=== PATIENT | male | born 1985 | race Caucasian/White ===

== ENCOUNTER 2016-09-15 18:55 | Emergency (ER) | payer BC ==
[2016-09-15 19:02] VITALS: RESP 18
--- NOTE | 2016-09-15 19:25 | XR ---
EXAMINATION TYPE: XR forearm RT DATE OF EXAM: 09/15/2016 7:22 PM CLINICAL HISTORY: pain TECHNIQUE: Frontal and lateral images of the right forearm are obtained. COMPARISON: None. FINDINGS: There is no acute fracture/dislocation evident. The joint spaces appear within normal limi ts. The overlying soft tissue appears unremarkable. IMPRESSION: There is no acute fracture or dislocation. ICD 10 NO FRACTURE, INITIAL EVALUATION
--- NOTE | 2016-09-15 19:32 | ED ---
Wound/Laceration HPI - General Chief Complaint: Wound/Laceration Stated Complaint: fall-arm laceration Time Seen by Provider: 09/15/16 19:04 Source: patient, RN notes reviewed, old records reviewed Mode of arrival: ambulatory Limitations: no limitations - History of Present Illness Initial Comments: Patient is a 31-year-old male with chief complaint of laceration over the right forearm. 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 Patient reports that his tetanus is up-to-date. He denies any foreign bodies within the forearm. He denies any pain with flexion and extension of the wrist or the elbow. He states that he does have some superficial numbness and tingling over the area. He denies any other injury related to the fall.Patient denies any recent fever, chills, shortness of breath, chest pain, back pain, abdominal pain , nausea vomiting, numbness or tingling, dysuria or hematuria, constipation or diarrhea, headaches or visual changes, or any other current symptoms - Related Data Previous Rx's Medication Instructions Recorded Cephalexin [Keflex] 500 mg PO Q8HR #21 cap 09/15/16 Allergies Allergy/AdvReac Type Severity Reaction Status Date / Time Penicillins Allergy Unknown Verified 09/15/16 19:27 Childhood Review of Systems ROS Statement: Those systems with pertinent positive or pertinent negative responses have been documented in the HPI. ROS Other: All systems not noted in ROS Statement are negative. Past Medical History Past Medical History: Asthma History of Any Multi-Drug Resistant Organisms: None Reported Past Surgical History: Orthopedic Surgery Additional Past Surgical History / Comment(s): right knee surgery Past Psychological History: No Psychological Hx Reported Smoking Status: Never smoker Past Alcohol Use History: Occasional Past Drug Use History: None Reported General Exam - General Exam Comments Initial Comments: Patient is a pleasant 31-year-old male. No acute distress. Limitations: no limitations General appearance: alert, in no apparent distress Head exam: Present: atraumatic, normocephalic, normal inspection Eye exam: Present: normal appearance, PERRL, EOMI. Absent: scleral icterus, conjunctival injection, periorbital swelling ENT exam: Present: normal exam, mucous membranes moist Neck exam: Present: normal inspection. Absent: tenderness, meningismus, lymphadenopathy Respiratory exam: Present: normal lung sounds bilaterally. Absent: respiratory distress, wheezes, rales, rhonchi, stridor Cardiovascular Exam: Present: regular rate, normal rhythm, normal heart sounds. Absent: systolic murmur, diastolic murmur, rubs, gallop, clicks GI/Abdominal exam: Present: soft, normal bowel sounds. Absent: distended, tenderness, guarding, rebound, rigid Extremities exam: Present: normal inspection, full ROM, normal capillary refill. Absent: tenderness, pedal edema, joint swelling, calf tenderness Right Elbow exam: Present: normal inspection, full ROM Forearm Wrist exam: Present: full ROM, laceration (5 cm laceration over the proximal anterior forearm. No evidence of tendon or muscle involvement. There does appear to be a superficial nerve that was lacerated.). Absent: normal inspection, tenderness, swelling, abrasion, ecchymosis Hand Wrist exam: Present: normal inspection, full ROM Neuro motor exam: Present: wrist extension intact, thumb opposition intact, thumb IP flexion intact, thumb adduction intact, fingers 2-5 abduction intact Neurosensory exam: Present: 2-point discrimination, radial nerve intact, ulnar nerve intact, median nerve intact Vascular: Present: normal capillary refill Back exam: Present: normal inspection Neurological exam: Present: alert, oriented X3, CN II-XII intact Psychiatric exam: Present: normal affect, normal mood Skin exam: Present: warm, dry, intact, normal color. Absent: rash Course Vital Signs 09/15/16 09/15/16 19:00 20:26 Temperature 97.2 F L 97.8 F Pulse Rate 84 74 Respiratory 18 18 Rate Blood Pressure 137/63 128/73 O2 Sat by Pulse 98 98 Oximetry Procedures - Laceration Laceration #1 Indication: laceration Site: upper extremity (Right forearm.) Size (cm): 5 Description: linear Depth: simple, single layer Anesthetic Used: benzocaine 0.25% Anesthesia Technique: local infiltration Amount (mls): 6 Pre-repair: wound explored, irrigated extensively Type of Sutures: nylon Size of Sutures: 5-0 Number of Sutures: 8 Technique: simple, interrupted Patient Tolerated Procedure: well, no complications Medical Decision Making - Medical Decision Making Patient is a 31-year-old well-appearing male. Patient does have a laceration over the right anterior forearm. The wound was rinsed with normal saline and cleaned with Betadine. Patient reports that his tetanus vaccination is up-to- date. X-ray was reviewed and no evidence of any foreign bodies or fractures. Patient was given 8 sutures and the wound was well approximated. Patient was given a sterile dressing and advised to monitor for any signs of infection. Given a extent of the laceration and the method patient will be placed on Keflex antibiotics to ensure no infection. Patient understands the treatment plan will comply. Return parameters were discussed. - Radiology Data Radiology results: report reviewed No fracture dislocation or evidence of foreign body. Disposition Clinical Impression: Laceration of right forearm Disposition: HOME SELF-CARE Condition: Good Instructions: Laceration (ED), Care For Your Stitches (ED) Additional Instructions: Please return to the emergency room in 8-10 days to have sutures removed. Please leave wound covered for the first 24-48 hours and then leave open to air after that time. Please use clean soap and water to clean the suture area to prevent scabbing over the top of your sutures. Please watch for any signs of infection which may include but not limited to increased pain, swelling, redness , fever or chills. Please return to the emergency room if any signs of infection do occur. Please return to the emergency room for any other concerns or complications. Prescriptions: Cephalexin [Keflex] 500 mg PO Q8HR #21 cap Referrals: José Miguel Rowland MD [REFERRING] - 1-2 days Time of Disposition: 20:15
[2016-09-15 20:35] VITALS: BP 128/73; PULSE 74; TEMP 97.8
== END 2016-09-15 20:27 | disposition home or self-care (01) ==
LOC: EC 18:55
DX: S51.811A Laceration without foreign body of right forearm, initial encounter (principal); Z88.0 Allergy status to penicillin; W00.0XXA Fall on same level due to ice and snow, initial encounter; Y93.01 Activity, walking, marching and hiking
CPT/HCPCS: 12002; 99283; 99284

== ENCOUNTER 2016-10-04 16:10 | Emergency (ER) | payer OTHER, BC ==
[2016-10-04 16:29] LABS: Glucose,Whole Blood 79 mg/dL (75-99)
[2016-10-04] MEDS ORDERED: SODIUM CHLORIDE 0.9% 500 ML IV ONE (16:29)
[2016-10-04] MEDS ORDERED: SODIUM CHLORIDE 0.9% 1,000 ML IV SCH (16:30)
[2016-10-04] MEDS ORDERED: cefTRIAXone 2,000 MG in SODIUM CHLORIDE 0.9% 100 ML IVPB STA (16:30)
[2016-10-04 16:37] LABS: Basophils # (A) 0.1 k/uL (0-0.2); Basophils % (A) 1 %; CH 30.4; CHCM 34.8; Eosinophils # (A) 0.6 k/uL (0-0.7); Eosinophils % (A) 7 %; HDW 2.56; HGB 14.8 gm/dL (13.0-17.5); Luc # (Auto) 0.25; Luc % (Auto) 3; Lymphocytes # (A) 3.1 k/uL (1.0-4.8); Lymphocytes % (A) 36 %; MCH 29.5 pg (25.0-35.0); MCHC 33.6 g/dL (31.0-37.0); MCV 87.8 fL (80.0-100.0); Mean Platelet Volume 6.3; Monocytes # (A) 0.3 k/uL (0-1.0); Monocytes % (A) 4 %; Neutrophils # (A) 4.3 k/uL (1.3-7.7); Neutrophils % (A) 49 %; RBC 5.01 m/uL (4.30-5.90); WBC 8.7 k/uL (3.8-10.6); WBC (Perox) 8.72
[2016-10-04 16:46] LABS: ALT 48 U/L (21-72); AST 60 U/L (17-59); Alkaline Phosphatase 46 U/L (38-126); Amylase 58 U/L (30-110); Anion Gap 17 mmol/L; Blood Urea Nitrogen 14 mg/dL (9-20); Calcium 8.8 mg/dL (8.4-10.2); Carbon Dioxide 20 mmol/L (22-30); Chloride 103 mmol/L (98-107); Glucose 91 mg/dL (74-99); Non-African American GFR(MDRD) >60 (>60 ml/min/1.73 sqM); Potassium 3.9 mmol/L (3.5-5.1); Sodium 140 mmol/L (137-145); Total Bilirubin 1.7 mg/dL (0.2-1.3); Total Protein 7.3 g/dL (6.3-8.2)
[2016-10-04 16:48] LABS: Alcohol 147 mg/dL
[2016-10-04 16:53] LABS: INR 1.2 (<1.1); Prothrombin Time 11.9 sec (9.0-12.0)
[2016-10-04 16:57] LABS: Creatine Kinase 142 U/L (55-170)
[2016-10-04 17:03] LABS: Partial Thromboplastin Time 20.1 sec (22.0-30.0)
[2016-10-04 17:09] LABS: Creatine Kinase MB 1.2 ng/mL (0.0-2.4); Troponin I <0.012 ng/mL (0.000-0.034)
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
--- NOTE | 2016-10-04 17:51 | XR ---
EXAMINATION TYPE: XR chest 1V portable DATE OF EXAM: 10/04/2016 4:56 PM COMPARISON: NONE HISTORY: Chest pain TECHNIQUE: Single frontal view of the chest is obtained. FINDINGS: Heart and mediastinum are normal. Lungs are clear. Costophrenic angles are clear. There ar e no hilar masses. Bony thorax appears intact. There is no sign of a pneumothorax. IMPRESSION: Normal chest
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
[2016-10-04 18:37] VITALS: BP 137/71; PULSE 88; RESP 18; TEMP 97.9
[2016-10-04 18:40] LABS: Appearance,Urine Clear (Clear); Bilirubin,Urine Negative (Negative); Glucose,Urine (UA) Negative (Negative); Granular Casts,Urine 8 /lpf (0); Ketones,Urine Negative (Negative); Leukocyte Esterase,Urine Negative (Negative); Mucus,Urine Rare /hpf; Nitrite,Urine Negative (Negative); Particle Count 1773; Protein,Urine Trace (Negative); RBC,Urine 1 /hpf (0-5); Specific Gravity,Urine 1.007 (1.001-1.035); UA Billing (MACRO vs. MICRO) MICRO; Urobilinogen,Urine <2.0 mg/dL (<2.0); WBC,Urine 2 /hpf (0-5)
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
== END 2016-10-04 20:45 | disposition other institution (70) ==
LOC: EC 16:10
DX: S01.01XA Laceration without foreign body of scalp, initial encounter (principal); F10.129 Alcohol abuse with intoxication, unspecified; Z88.0 Allergy status to penicillin; Z91.018 Allergy to other foods; V00.831A Fall from motorized mobility scooter, initial encounter; W22.09XA Striking against other stationary object, initial encounter; Y92.410 Unspecified street and highway as the place of occurrence of the external cause
CPT/HCPCS: 36415; 93005; 86900; 86901; 80053; 82150; 82550; 82553; 83690; 84484; 85025; 85610; 85730; 86850; 81001; 80306; 80320; 71010; 72170; 72125; 70450; 99285; 12002; 96365; 96361 ×3; J0696

== ENCOUNTER → 2018-03-24 | Outpatient (CLI) | payer OTHER ==
--- NOTE | 2018-03-24 21:59 | XR ---
EXAMINATION TYPE: XR chest 2V DATE OF EXAM: 03/24/2018 COMPARISON: October 04, 2016 HISTORY: Asthma short of breath TECHNIQUE: Frontal and lateral views of the chest are obtained. FINDINGS: Heart and mediastinum are normal. Lungs are clear. Diaphragm is normal. Bony thorax appear s normal. IMPRESSION: Normal chest. No change.
== END ==
LOC: RADXRYALE 16:42
PROVIDERS: ATTEND Physician Assistant Medical
DX: R06.02 Shortness of breath (principal)
CPT/HCPCS: 71046

== ENCOUNTER → 2022-09-18 | Outpatient (CLI) | payer OTHER ==
--- NOTE | 2022-09-18 14:29 | XR ---
EXAMINATION TYPE: XR knee complete RT DATE OF EXAM: 09/18/2022 2:21 PM INDICATION: Patient age:Male; 37 years old; Reason for study: S80.01XA KNEE; PHH. COMPARISON: None. TECHNIQUE: The Right knee(s) was examined in 3 projections. Frontal, lateral and oblique. FINDINGS: No evidence of any acute osseous pathology, joint space narrowing, soft tissue swelling, or joint effusion is noted. No radiopaque foreign body. IMPRESSION: No acute osseous pathology.
== END | disposition home or self-care (01) ==
LOC: RADXRMAIN 14:02
PROVIDERS: ATTEND Emergency Medicine
DX: S80.01XA Contusion of right knee, initial encounter (principal)

== ENCOUNTER → 2024-06-16 | Day surgery (SDC) | payer OTHER ==
[2024-06-14 15:18] VITALS: BMI 25.1
[~2024-06-16] MED LIST: LIDOCAINE 1% (10MG/ML) FOR IV START INTRADERMA PRN; LIDOCAINE 1% INJ 10MG/ML (20 ML MDV) ONE; PROPOFOL 10 MG/ML 20 ML VIAL IV ONE
[2024-06-16 11:42] VITALS: TEMP 97
[2024-06-16] MEDS: LACTATED RINGERS 1,000 ML IV SCH (11:43)
[2024-06-16] MEDS: IV FLUID CONTINUATION 1,000 ML IV ONE (11:44)
--- NOTE | 2024-06-16 12:52 | P.PCN ---
Date of Procedure: 06/16/24 Procedure(s) Performed: BRIEF HISTORY: Patient is a 38-year-old, pleasant, white male scheduled for an upper endoscopy as a part evaluation of vitamin dysphagia to solids for the last 2 years duration. Symptoms are usually with meat and bread. PROCEDURE PERFORMED: Esophagogastroduodenoscopy biopsy and dilation. PREOPERATIVE DIAGNOSIS: Intermittent dysphagia to solids of 2 years.. IV sedation per anesthesia. PROCEDURE: After informed consent was obtained, the patient was brought into the endoscopy unit. IV sedation was administered by Anesthesia under continuous monitoring. Initially the Olympus GIF-140 video endoscope was inserted into the mouth. Esophagus intubated without any difficulty. It was gradually advanced into the stomach and duodenum and carefully examined. The bulb and the second part of the duodenum appeared normal. The scope at this time was withdrawn to the stomach, adequately insufflated with air, and upon careful examination, mucosa of the antrum, body, cardia and the fundus appeared normal. The scope was then withdrawn into the esophagus. Hiatal hernia noted. The GE junction was located at 39 cm from the incisors. Distal esophageal stricture identified that was dilated using 12-15 mm TTS balloon for 30 seconds. Mucosal tear with some oozing identified. The mucosa of the mid and distal esophagus had thickened distal esophageal folds with longitudinal ridges suspicious for eosinophilic esophagitis and multiple biopsies were done from the mid and distal esophagus to evaluate for eosinophilic esophagitis. Rest of the esophagus appeared normal and the patient tolerated the procedure well. IMPRESSION: 1. Distal esophageal stricture status post balloon dilation using the 12-15 mm TTS balloon as described above. 2. Thickened esophageal folds involving mid and distal esophagus with longitudinal ridges suspicious for eosinophilic esophagitis s/p multiple biopsies 3. Small hiatal hernia. RECOMMENDATIONS: The findings of this examination were discussed with the patient as well as his family. He was advised to follow-up with the biopsy results. Continue with a clear liquid diet for 2 hours. Follow-up in the office in 2 to 3 weeks.. 38
[2024-06-16 13:10] VITALS: BP 120/81; PULSE 55; RESP 18
== END ==
LOC: ORWHC2ENDO 09:49
PROVIDERS: ATTEND Internal Medicine Gastroenterology
DX: D72.10 Eosinophilia, unspecified (principal); K22.2 Esophageal obstruction; K44.9 Diaphragmatic hernia without obstruction or gangrene; J45.909 Unspecified asthma, uncomplicated; Z79.51 Long term (current) use of inhaled steroids; Z88.0 Allergy status to penicillin; Z91.018 Allergy to other foods
CPT/HCPCS: 88305; 43239; 43249; J2003; J2704; C1726